=== PATIENT | male | born 1985 | race African-American/Black ===

== ENCOUNTER 2021-04-04 02:48 | Emergency (ER) | payer MEDICAID ==
[2021-04-04] MEDS ORDERED: HYDROcodone/APAP 5/325 TABLET PO ONE (03:00)
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
--- NOTE | 2021-04-04 03:21 | NUR ---
PT TO XRAY FOR US OF LOWER EXTEMETIES.
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
[2021-04-04] MEDS ORDERED: HYDROcodone/APAP 5/325 TABLET ONE ×2 (03:29→03:31)
[2021-04-04 05:13] LABS: MICROSCOPIC NOT IND
[2021-04-04 05:28] LABS: BASOPHILS % (AUTO) 1 % (0-1); EOSINOPHILS % (AUTO) 1 % (1-7); LYMPHOCYTES % (AUTO) 20 % (22-44); MEAN CORPUSCULAR HEMOGLOBIN 27.6 pg (27.5-34.5); MEAN CORPUSCULAR HGB CONC 32.7 g/dL (33.2-36.2); MEAN PLATELET VOLUME 7.2 fL (7.4-10.4); MONOCYTES % (AUTO) 8 % (2-9); NEUTROPHILS % (AUTO) 70 % (42-75); PLATELET COUNT 357 x10^3/uL (130-400); RED BLOOD COUNT 3.91 x10^6/uL (4.38-5.82); RED CELL DISTRIBUTION WIDTH 15.1 % (9.4-14.8)
[2021-04-04 05:32] LABS: MD NO
[2021-04-04 05:41] LABS: CHLORIDE 108 mmol/L (98-107)
[2021-04-04 05:48] LABS: ALANINE AMINOTRANSFERASE 30 U/L (12-78); ALBUMIN 3.2 g/dL (3.4-5.0); ALKALINE PHOSPHATASE 69 U/L (45-117); ANION GAP 5 mmol/L (5-15); BILIRUBIN,TOTAL 0.3 mg/dL (0.2-1.0); CALCIUM 8.4 mg/dL (8.5-10.1); CREATININE 0.75 mg/dL (0.7-1.3); TOTAL PROTEIN 7.2 g/dL (6.4-8.2)
[2021-04-04 06:23] VITALS: BP 134/76
--- NOTE | 2021-04-04 06:44 | NUR ---
Patient given discharge instructions and they have confirmed that they understand the instructions. Patient ambulatory with steady gait. No quesitons at time of discharge.
== END 2021-04-04 06:56 | disposition home or self-care (01) ==
LOC: ED 06:54
DX: N50.812 Left testicular pain (principal); R10.9 Unspecified abdominal pain
CPT/HCPCS: 36415; 74176; 80053; 81003; 83690; 85025; 99284

== ENCOUNTER 2021-05-29 15:18 | Observation (INO) | payer MEDICAID ==
[~2021-05-29] VITALS: Ht 190.5 cm; Wt 110.0 kg
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
--- NOTE | 2021-05-29 15:36 | NUR ---
PA AT BS FOR EVAL
--- NOTE | 2021-05-29 15:48 | NUR ---
PT UNABLE TO VOID AT THIS TIME
--- NOTE | 2021-05-29 16:17 | NUR ---
PT SLEEPING ON GURNEY, RESPIRATIONS EVEN AND UNLABORED. NADN/VSS. CALL LIGHT WITHIN REACH, BED IN LOWEST POSITION, BED RAILS UP X2
--- NOTE | 2021-05-29 16:33 | NUR ---
PT UNABLE TO VOID, PA AWARE
[2021-05-29 17:02] LABS: ALANINE AMINOTRANSFERASE 29 U/L (12-78); ALBUMIN 3.4 g/dL (3.4-5.0); CALCIUM 8.4 mg/dL (8.5-10.1); CREATININE 1.07 mg/dL (0.7-1.3)
[2021-05-29 17:05] LABS: ALKALINE PHOSPHATASE 79 U/L (45-117); BILIRUBIN,TOTAL 0.3 mg/dL (0.2-1.0); TOTAL PROTEIN 7.5 g/dL (6.4-8.2)
[2021-05-29 17:08] LABS: BASOPHILS % (AUTO) 1 % (0-1); EOSINOPHILS % (AUTO) 2 % (1-7); LYMPHOCYTES % (AUTO) 19 % (22-44); MEAN CORPUSCULAR HGB CONC 32.1 g/dL (33.2-36.2); MONOCYTES % (AUTO) 16 % (2-9); NEUTROPHILS % (AUTO) 62 % (42-75); PLATELET COUNT 267 x10^3/uL (130-400); RED BLOOD COUNT 4.65 x10^6/uL (4.38-5.82); RED CELL DISTRIBUTION WIDTH 14.9 % (9.4-14.8)
[2021-05-29 17:09] LABS: ANION GAP 3 mmol/L (5-15); CHLORIDE 107 mmol/L (98-107)
--- NOTE | 2021-05-29 17:29 | NUR ---
PT SLEEPING ON GURNEY, RESPIRATIONS EVEN AND UNLABORED. NADN/VSS. CALL LIGHT WITHIN REACH. BED IN LOWEST POSTION, BED RAILS UP X2
[2021-05-29 18:27] VITALS: BP 146/79
--- NOTE | 2021-05-29 18:38 | NUR ---
PT TO CT
--- NOTE | 2021-05-29 18:49 | NUR ---
received report from ANDRES Hollis
--- NOTE | 2021-05-29 18:49 | NUR ---
REPORT TO ANDRES HERRERA
[2021-05-29 19:31] LABS: MICROSCOPIC NOT IND
[2021-05-29 19:38] LABS: AMPHETAMINE SCREEN, URINE Positive (Negative); BARBITURATE SCREEN, URINE Negative (Negative); BENZODIAZEPINE SCREEN, URINE Negative (Negative); CANNABINOID SCREEN, URINE Positive (Negative); COCAINE SCREEN, URINE Negative (Negative); METHADONE SCREEN, URINE Negative (Negative); OPIATE SCREEN, URINE Positive (Negative)
--- NOTE | 2021-05-29 20:00 | NUR ---
pt able to give ua sample and sitting at edge of bed eating food
--- NOTE | 2021-05-29 20:11 | NUR ---
Patient given discharge instructions and they have confirmed that they understand the instructions. Patient ambulatory with steady gait.
== END 2021-05-29 20:14 | disposition home or self-care (01) ==
LOC: ED 18:55 → EDIP 19:10
PROVIDERS: ADMIT Emergency Medicine; ATTEND Emergency Medicine
DX: G93.40 Encephalopathy, unspecified (principal)
CPT/HCPCS: 36415; 70450; 72125; 80053; 80307; 80320; 81003; 85025; 99285; G0378; G0480